=== PATIENT | female | born 1995 | race Two or more races ===

== ENCOUNTER → 2025-10-08 | Emergency (ER) | payer OTHER ==
[~2025-10-08] VITALS: Ht 157.5 cm; Wt 108.0 kg
[~2025-10-08] MED LIST: ACETAMINOPHEN 500 MG GEL..CAP PO ONE; ACETAMINOPHEN 500 MG GEL..CAP PO STA
[2025-10-08 12:37] LABS: BASO % 0.2 % (0.1-1.2); EOS # 0.07 (0.04-0.54); EOS % 0.6 % (0.7-7.0); LYMPH # 2.60 (1.18-3.74); LYMPH % 23.3 % (19.3-53.1); MEAN PLATELET VOLUME 9.70 fl (9.4-12.4); MONO # 0.65 (0.24-0.82); MONO % 5.8 % (4.7-12.5); NEUT # 7.74 (1.56-6.13); NEUT % 69.6 % (34.0-71.1); RED CELL DISTRIBUTION WIDTH 12.8 % (11.6-14.4)
[2025-10-08 13:42] LABS: URINE APPEARANCE Cloudy; URINE BILIRRUBIN Negative (NEGATIVE); URINE BLOOD Negative; URINE COLOR Yellow; URINE GLUCOSE Negative (NEGATIVE); URINE KETONE Negative (NEGATIVE); URINE LEUKOCYTE Negative; URINE NITRATE Negative; URINE PROTEIN Negative (NEGATIVE); URINE UROBILINOGEN 1.0 E.U./dl
[2025-10-08 13:46] LABS: ALT/SGPT 39.0 U/L (12-78); AST/SGOT 16.0 U/L (15-37); BILIRUBIN TOTAL 0.31 mg/dL (0.3-1.2); BUN CREA RATIO 18.0 (7.0-25.0); CREATININE SERUM 0.4 mg/dL (0.55-1.02); GFR 190.06; GLOBULINA 3.6 G/DL (2.4-3.5); GLUCOSE FASTING 79.0 mg/dL (65-100); OSMOLALITY SERUM 278.0 MOSM/KG (275-295)
[2025-10-08 13:46] LABS: URINE BACTERIA 1317.8 uL (0.0-1933); URINE EPITHELIAL CELLS 45.6 uL (0.0-38.8); URINE RBC 5.3 uL (0.0-20.8); URINE WBC 19.4 uL (0.0-23.2)
[2025-10-08 13:56] LABS: URINE CAST 0.42 uL (0.0-1.40)
== END | disposition home or self-care (01) ==
LOC: ER 10:37
PROVIDERS: General Practice
DX: O26.892 Other specified pregnancy related conditions, second trimester (principal); R10.20 Pelvic and perineal pain unspecified side; M54.50 Low back pain, unspecified; Z3A.15 15 weeks gestation of pregnancy